=== PATIENT | male | born 1985 | race Caucasian/White ===

== ENCOUNTER 2018-01-24 17:38 | Emergency (ER) | payer OTHER ==
[2018-01-24 18:04] VITALS: BP 116/74; PULSE 91; RESP 18; TEMP 98.3
[2018-01-24] MEDS ORDERED: DIPH,PERTUS(ACELL)TETVAC-LF 0.5 ML VIAL IM ONE (18:33)
--- NOTE | 2018-01-24 19:02 | XR ---
PROCEDURE: XR finger RT 3V DATE AND TIME: 01/24/2018 6:47 PM CLINICAL INDICATION: [facility] Pain TECHNIQUE: Department protocol. 3V COMPARISON: None FINDINGS: At the tip of the third finger anteriorly is a 1 cm cutaneous/shallow subcutaneous soft tis mick defect. No radiopaque foreign. No soft tissue emphysema. There is no fracture or malalignment. IMPRESSION: Soft tissue defect.
[2018-01-24] MEDS ORDERED: CEPHALEXIN 500MG STARTER PACK 4 CAP BTL PO STA (19:23)
[2018-01-24] MEDS ORDERED: TOPICAL SKIN ADHESIVE 1 EACH AMP TOPICAL ONE (19:23)
--- NOTE | 2018-01-24 19:25 | ED ---
Skin/Abscess/FB HPI - General Chief complaint: Skin/Abscess/Foreign Body Stated complaint: nail gun in finger Time Seen by Provider: 01/24/18 19:03 Source: patient, RN notes reviewed, old records reviewed Mode of arrival: ambulatory Limitations: no limitations - History of Present Illness Initial comments: This patient is a 33 year old male with CC of puncture wound of R middle finger after a nail gun was fired. Patient reports that he has full ROM of finger. Patient reports it happened at work. Patient reports he is a building a deck. Patient reports that his TDAP is not up to date. - Related Data Previous Rx's Medication Instructions Recorded Cephalexin [Keflex] 500 mg PO Q8HR #21 cap 01/24/18 Allergies Allergy/AdvReac Type Severity Reaction Status Date / Time No Known Allergies Allergy Verified 01/24/18 18:23 Review of Systems ROS Statement: Those systems with pertinent positive or pertinent negative responses have been documented in the HPI. ROS Other: All systems not noted in ROS Statement are negative. Past Medical History Past Medical History: No Reported History History of Any Multi-Drug Resistant Organisms: None Reported Past Surgical History: No Surgical Hx Reported Past Psychological History: No Psychological Hx Reported Smoking Status: Current every day smoker Past Alcohol Use History: Rare Past Drug Use History: Marijuana General Exam - General Exam Comments Initial Comments: This is a 33 year old male, no distress. Limitations: no limitations General appearance: alert, in no apparent distress Head exam: Present: atraumatic, normocephalic, normal inspection Eye exam: Present: normal appearance, PERRL, EOMI. Absent: scleral icterus, conjunctival injection, periorbital swelling ENT exam: Present: normal exam, mucous membranes moist Neck exam: Present: normal inspection. Absent: tenderness, meningismus, lymphadenopathy Respiratory exam: Present: normal lung sounds bilaterally. Absent: respiratory distress, wheezes, rales, rhonchi, stridor Cardiovascular Exam: Present: regular rate, normal rhythm, normal heart sounds. Absent: systolic murmur, diastolic murmur, rubs, gallop, clicks GI/Abdominal exam: Present: soft, normal bowel sounds. Absent: distended, tenderness, guarding, rebound, rigid Extremities exam: Present: normal inspection, full ROM, normal capillary refill. Absent: tenderness, pedal edema, joint swelling, calf tenderness Right Elbow exam: Present: normal inspection, full ROM Forearm Wrist exam: Present: normal inspection, full ROM Hand Wrist exam: Present: full ROM, laceration (puncture wound of R middle finger over DIP). Absent: normal inspection Vascular: Present: normal capillary refill Neurological exam: Present: alert, oriented X3, CN II-XII intact Psychiatric exam: Present: normal affect, normal mood Skin exam: Present: warm, dry, intact, normal color. Absent: rash Course Vital Signs 01/24/18 18:02 Temperature 98.3 F Pulse Rate 91 Respiratory 18 Rate Blood Pressure 116/74 O2 Sat by Pulse 100 Oximetry Medical Decision Making - Medical Decision Making 33 year old male with puncture wound of R Middle finger from nail gun. Patient has superficial puncture wound. Patient xray shows no fractures. He has full ROM of finger. Patient given TDAP. Given Rx for keflex for infection prevention. Wound was throughly irrigated. Discussed follow up and monitoring for infection. - Radiology Data Radiology results: report reviewed At the tip of the 3rd finger anteriorly 1cm cutaneuos shalier subcutaneous defect. No foreign body. No emphysema. Disposition Clinical Impression: Puncture wound of finger of right hand Disposition: HOME SELF-CARE Condition: Good Instructions: Puncture Wound (ED) Additional Instructions: Patient advised to take antibiotic as prescribed. Keep the wound clean and dry. Return to the emergency department if any alarming signs or symptoms occur. Prescriptions: Cephalexin [Keflex] 500 mg PO Q8HR #21 cap Is patient prescribed a controlled substance at d/c from ED?: No Referrals: None,Stated [Primary Care Provider] - 1-2 days Kaela Ibarra MD [STAFF PHYSICIAN] - 1-2 days Frankie Chapman DO [Doctor of Osteopathic Medicine] - 1-2 days Time of Disposition: 19:24
== END 2018-01-24 19:54 | disposition home or self-care (01) ==
LOC: EC 17:38
DX: S61.232A Puncture wound without foreign body of right middle finger without damage to nail, initial encounter (principal); S61.212A Laceration without foreign body of right middle finger without damage to nail, initial encounter; F17.200 Nicotine dependence, unspecified, uncomplicated; Z23 Encounter for immunization; W29.4XXA Contact with nail gun, initial encounter; Y93.89 Activity, other specified; Y92.89 Other specified places as the place of occurrence of the external cause
CPT/HCPCS: 90471; 90715; 99283

== ENCOUNTER 2022-09-27 11:11 | Observation (INO) | payer OTHER ==
[2022-09-27] MEDS ORDERED: HYDROmorphone 0.5 MG/0.5 ML SYRINGE IVP STA ×2 (11:29→12:03)
[2022-09-27] MEDS ORDERED: ONDANSETRON 4 MG/2 ML VIAL IVP STA (11:29)
[2022-09-27] MEDS ORDERED: DIPH,PERTUS(ACELL)TETVAC-LF 0.5 ML VIAL IM ONE (11:30)
--- NOTE | 2022-09-27 12:05 | ED ---
Lower Extremity Injury HPI - General Chief Complaint: Extremity Injury, Lower Stated Complaint: Knee Injury Time Seen by Provider: 09/27/22 11:15 Source: patient, RN notes reviewed Mode of arrival: wheelchair Limitations: no limitations - History of Present Illness Initial Comments: 37-year-old male presents emergency Department with chief complaint of nail in left knee. Patient states that he was doing some decking with 3 inch nail states that he actually shot wanted to his left knee is unsure when his last tetanus was. He has NO KNOWN DRUG ALLERGIES. Patient has been in severe pain states he cannot bend his leg. - Related Data Home Medications Medication Instructions Recorded Confirmed No Known Home Medications 09/27/22 09/27/22 Allergies Allergy/AdvReac Type Severity Reaction Status Date / Time No Known Allergies Allergy Verified 09/27/22 13:08 Review of Systems ROS Statement: Those systems with pertinent positive or pertinent negative responses have been documented in the HPI. ROS Other: All systems not noted in ROS Statement are negative. Past Medical History Past Medical History: No Reported History History of Any Multi-Drug Resistant Organisms: None Reported Past Surgical History: No Surgical Hx Reported Past Psychological History: No Psychological Hx Reported Smoking Status: Current every day smoker Past Alcohol Use History: Rare Past Drug Use History: Marijuana General Exam Limitations: no limitations General appearance: alert, in no apparent distress Head exam: Present: atraumatic, normocephalic, normal inspection Respiratory exam: Present: normal lung sounds bilaterally. Absent: respiratory distress, wheezes, rales, rhonchi, stridor Cardiovascular Exam: Present: regular rate, normal rhythm, normal heart sounds. Absent: systolic murmur, diastolic murmur, rubs, gallop, clicks Extremities exam: Present: other (Left knee just superior to the patella there is noted nail protruding through the skin patient unable to bend knee, neurovascular intact no active bleeding) Course Vital Signs 09/27/22 11:12 Temperature 98.7 F Pulse Rate 85 Respiratory 20 Rate Blood Pressure 156/72 O2 Sat by Pulse 100 Oximetry Medical Decision Making - Medical Decision Making Was pt. sent in by a medical professional or institution (, PA, CONVEYOR MAN, urgent care, hospital, or skilled nursing...) When possible be specific @ -No Did you speak to anyone other than the patient for history (EMS, parent, family, police, friend...)? What history was obtained from this source @ -No Did you review nursing and triage notes (agree or disagree)? Why? @ -I reviewed and agree with nursing and triage notes Were old charts reviewed (outside hosp., previous admission, EMS record, old EKG, old radiological studies, urgent care reports/EKG's, skilled nursing records)? Report findings @ -No old charts were reviewed Differential Diagnosis (chest pain, altered mental status, abdominal pain women, abdominal pain men, vaginal bleeding, weakness, fever, dyspnea, syncope, h eadache, dizziness, GI bleed, back pain, seizure, CVA, palpatations, mental health, musculoskeletal)? @ -Foreign-body left knee, fracture, EKG interpreted by me (3pts min.). @ -None X-rays interpreted by me (1pt min.). @ -X-ray shows foreign-body to the femur into the joint space of the left knee CT interpreted by me (1pt min.). @ -None done U/S interpreted by me (1pt. min.). @ -None done What testing was considered but not performed or refused? (CT, X-rays, U/S, labs)? Why? @ -None What meds were considered but not given or refused? Why? @ -None Did you discuss the management of the patient with other professionals (professionals i.e. , PA, CONVEYOR MAN, lab, RT, psych nurse, social insurance adviser, pullman car repairer, teacher, labor relations officer, case advocate)? Give summary @ -Case discussed with Quinn Wood on-call for orthopedics associate recommends patient be admitted for lower for nail removal, washout Was smoking cessation discussed for >3mins.? @ -No Was critical care preformed (if so, how long)? @ -No Were there social determinants of health that impacted care today? How? (Homelessness, low income, unemployed, alcoholism, drug addiction, transportation, low edu. Level, literacy, decrease access to med. care, mcc, rehab)? @ -No Was there de-escalation of care discussed even if they declined (Discuss DNR or withdrawal of care, Hospice)? DNR status @ -No What co-morbidities impacted this encounter? (DM, HTN, Smoking, COPD, CAD, Cancer, CVA, ARF, Chemo, Hep., AIDS, mental health diagnosis, sleep apnea, morbid obesity)? @ -None Was patient admitted / discharged? Hospital course, mention meds given and route, prescriptions, significant lab abnormalities, going to OR and other pertinent info. @ -Admitted for observation for or removal of foreign body with washout patient was given Ancef, Adacel. Patient was given adequate pain control. Undiagnosed new problem with uncertain prognosis? @ -No Drug Therapy requiring intensive monitoring for toxicity (Heparin, Nitro, Insulin, Cardizem)? @ -No Were any procedures done? @ -No Diagnosis/symptom? @ -Foreign-body left knee Acute, or Chronic, or Acute on Chronic? @ -Acute Uncomplicated (without systemic symptoms) or Complicated (systemic symptoms)? @ -Uncomplicated Side effects of treatment? @ -No Exacerbation, Progression, or Severe Exacerbation? @ -No Poses a threat to life or bodily function? How? (Chest pain, [place], [place], pneumonia, PE, COPD, DKA, ARF, appy, cholecystitis, CVA, Diverticulitis, Homicidal, Suicidal, threat to staff... and all critical care pts) @ -No Disposition Clinical Impression: Foreign body of left knee Disposition: ADMITTED IP TO THIS HOSP Condition: Fair Referrals: None,Stated [Primary Care Provider] - 1-2 days Time of Disposition: 12:41
--- NOTE | 2022-09-27 12:06 | XR ---
EXAMINATION TYPE: XR knee limited LT DATE OF EXAM: 09/27/2022 CLINICAL HISTORY: Nail gun injury with pain TECHNIQUE: Frontal and lateral views of the right knee are obtained. COMPARISON: None. FINDINGS: There is a large metallic nail transecting the anterior aspect of the distal femoral metap hysis extending inferiorly through the distal tibial epiphysis on frontal view at the level of the th e intracondylar notch. There is some bending at osseous insertion but no metallic nail fragmentation. There is no acute fracture/dislocation evident in the left knee. Mild narrowing medial tibiofemoral and patellofemoral compartments. The overlying soft tissue appears unremarkable. IMPRESSION: As above.
[2022-09-27] MEDS ORDERED: NALOXONE 0.4 MG/ML 1 ML VIAL IV PRN (12:58)
[2022-09-27] MEDS ORDERED: ONDANSETRON 4 MG/2 ML VIAL IVP PRN (12:58)
[2022-09-27] MEDS ORDERED: LACTATED RINGERS 1,000 ML IV ONE (13:44)
[2022-09-27] MEDS ORDERED: HYDROmorphone 1 MG/ML 1 ML SYRINGE IVP ONE (13:53)
[2022-09-27] MEDS ORDERED: DEXAMETHASONE SOD PHOSPHATE 4 MG/ML 1 ML VIAL IV ONE (13:54)
[2022-09-27] MEDS ORDERED: SUCCINYLCHOLINE CHLORIDE 200 MG/10 ML VIAL IV ONE (14:11)
[2022-09-27] MEDS ORDERED: PROPOFOL 10 MG/ML 20 ML VIAL IV ONE (14:11)
[2022-09-27] MEDS ORDERED: MIDAZOLAM 2 MG/2 ML VIAL ONE (14:11)
[2022-09-27] MEDS ORDERED: fentaNYL (PF) 50 MCG/ML 2 ML AMP ONE (14:11)
[2022-09-27] MEDS ORDERED: LIDOCAINE 2% INJ 20 MG/ML (2 ML VIAL) ONE (14:11)
--- NOTE | 2022-09-27 14:21 | P.HPOR ---
History of Present Illness H&P Date: 09/27/22 Chief Complaint: Nail at left knee from a nail gun Patient is a pleasant 37-year-old male seen and examined at bedside. He was doing some work at home today trying to build a deck. He was using a nail gun and inadvertently shot himself in his left leg. The nail went into his distal left thigh above his knee had sudden acute pain and presented to the emergency room. The patient says he has not had problems his leg or his knee in the past. He denies any other injuries. Denies any other pain. The pain is located only in his left knee. He denies any headaches lost consciousness. Denies any chest pain shortness of breath denies any fevers chills. Denies any numbness tingling his lower extremity is. Denies any problems in his foot and ankle or toes. Review of Systems As stated above in HPI. Otherwise no other complaints. He denies any numbness tingling his ankle foot or toes or his lower leg. He is not having problems his leg or his knee in the past. He is normally a community ambulator without any assistance. He is currently not working. Past Medical History Past Medical History: No Reported History History of Any Multi-Drug Resistant Organisms: None Reported Past Surgical History: No Surgical Hx Reported Past Psychological History: No Psychological Hx Reported Smoking Status: Current every day smoker Past Alcohol Use History: Rare Past Drug Use History: Marijuana Medications and Allergies Home Medications Medication Instructions Recorded Confirmed Type No Known Home Medications 09/27/22 09/27/22 History Allergies Allergy/AdvReac Type Severity Reaction Status Date / Time No Known Allergies Allergy Verified 09/27/22 13:57 Physical Examination Osteopathic Statement: *. No significant issues noted on an osteopathic structural exam other than those noted in the History and Physical/Consult. Results - Diagnostic results Knee x-ray: report reviewed, image reviewed (X-rays his left knee show the nail entering his distal femur angulated distally and posteriorly and with the tip entering into the posterior aspect of the joint between the condyles. There is no obvious fracture.) Assessment and Plan Assessment: Traumatic arthrotomy with a retained nail at the distal femur entering the knee joint Status post injury with a nail gun Plan: Traumatic arthrotomy with a retained nail at the distal femur entering the knee joint Status post injury with a nail gun The patient has obvious nail retained at his distal femur. The head of the nails actually tenting into the skin dimpling at C can see that of the nail. His neurologic status is intact at his lower extremities. We need to remove the nail [employer] slay. With the tip of the nail entering into the knee joint he has a traumatic arthrotomy I think requires irrigation and debridement of his left knee joint. We can plan on doing this arthroscopically. I discussed the nature of the injury with patient and the possibilities of other injury and fractured his distal femur and possibly's of infection was all spine to him. He understands these issues and he elects to proceed with surgical intervention for removal of foreign body at his left femur and into his left knee joint with irrigation and debridement left knee. I discussed the risk of occasions alternatives and he understands and agrees to proceed. He understands that he may need further treatment in the future but today we need to remove the foreign object evaluate the knee and start him with irrigation and debridement and IV antibiotics. He'll likely need IV and a box overnight tonight and home with oral medications. We'll plan surgery as soon as possible. He has been nothing by mouth today.
[2022-09-27] MEDS ORDERED: ceFAZolin 1,000 MG VIAL IVPB ONE (14:39)
[2022-09-27] MEDS ORDERED: ceFAZolin 1,000 MG in SODIUM CHLORIDE 0.9% 1,000 ML IRRIGATION ONE (14:44)
[2022-09-27] MEDS ORDERED: HYDROmorphone 0.5 MG/0.5 ML SYRINGE IVP PRN (15:07)
[2022-09-27] MEDS ORDERED: BENZOCAINE/MENTHOL LOZENG 1 EACH LOZENGE MUCOUS MEM PRN (15:07)
--- NOTE | 2022-09-27 15:20 | P.OP ---
Date of Procedure: 09/27/22 Preoperative Diagnosis: Traumatic arthrotomy left knee with retained foreign body, nail from a nail gun Retained traumatic nail from a nail gun in distal femur into the left knee joint Left knee pain due to injury Postoperative Diagnosis: Same Anesthesia: GETA Pathology: other Condition: stable Disposition: PACU Description of Procedure: Preoperative diagnosis: Traumatic arthrotomy left knee with retained foreign body, nail from a nail gun Retained traumatic nail from a nail gun in distal femur into the left knee joint Left knee pain due to injury Postoperative diagnosis: Same Procedure: Removal of foreign body, nail from left distal femur and knee joint deep Irrigation and debridement of left knee wound approximately 1 cm Arthroscopic irrigation and debridement left knee traumatic arthrotomy Surgeon: Dr. Cornelius Claytont.: Jacob Heck who is present that the entire the case persistence during positioning dissection exposure placement of hardware and closure Anesthesia: Gen. per Dr. Dr. Mcclure Estimated blood loss: Approximately 10 mL Components implanted: None, we removed one nail in its entirety from the distal femur and left knee joint Disposition: To recovery room in good stable condition Operative indications The patient sustained a injury this morning with a nail gun when the nail gun discharged and shot a nail into his distal thigh anteriorly at his distal femur and into his knee joint. He presented to the emergency room. He was evaluated and found have an retained foreign body at the distal femur through the femur and to the knee joint. The patient denied any other injuries or traumas. Denies any problems with other issues. Denies any numbness tingling or weakness in his lower extremity. We are involved in regards to the nail and the traumatic arthrotomy with retained foreign body. We discussed the range of treatment options from conservative to surgical. I felt that we needed to remove the nail as soon as possible performed irrigation debridement and that area and then performed evaluation of the knee joint with arthroscopy and a arthroscopic irrigation and debridement as well. I discussed this with the patient and discussed this at length in terms of the risks, occasions alternatives and benefits. Discussed nature of his injury and the possible issue with need for further surgery possibility of infection possible issues of fracture and problems with his knee was all explained to him due to the injury. We felt that surgery given the best chance for the most positive outcome. They elected proceed with surgical intervention. We answered their questions to the best of our ability healing which they can understand. They signed an informed consent. Operative summary After obtaining informed consent evaluation by anesthesia, preoperative evaluation and clearance for medical service, the patient was identified and prepped [place] area and the surgical site was marked. There brought to the operating room where the given appropriate anesthesia by the anesthesia department in standard fashion without any complications. Once the anesthesia was established we were able to position the patient. The patient was sedated and intubated with his head and neck in good alignment and position with severe was secured. He was then transferred supine on the operating room table being careful padding of bony problems pressure points. Rhythm able to isolate his left leg. His leg was shaved, had a nonsterile tourniquet placed proximally which was not inflated during the procedure. And his left leg was prepped and draped in normal standard fashion with his knee freely. Appropriate keystone protocol appropriate timeout was completed where proceed with surgery. I was able to isolate the head of the nail around the soft tissue. We're able to attach a vise-food preparation supervisor at the head of the nail and gently malleted the nail out of the bone and soft tissue appropriately. He was examined and found to be in total. The site was somewhat denuded and I made a small incision approximately 1/2 cm in length over the area debrided some of the soft tissue and a copious irrigation and suctioned dry at the defect left by the nail. This was found to be clean after the irrigation and debridement. With this completed and then turned my attention to the knee joint itself. We prepared for a knee arthroscopy and I made a small incision anteromedially. Please trocar into the knee joint appropriately. I was able to then place the trocar and connected the fluid through the trocar and visualized a scope. There is no evidence of any major lateral meniscal tear. The cartilage appeared to be intact. We were able to evaluate at the penetration site and appeared to be clear without any loose fragments or debris. The ACL appeared to be intact without evidence of tear. No active bleeding. We copiously irrigated through the knee with approximately 3 L of antibiotic irrigation. We had a clean joint and an we were able to prepare for closure. The arthroscopy and portal was removed. The wound is clean and dried and the skin layers were closed with nylon. The wound was dressed with Adaptic 4 x 4's 80s Ying roll and a bulky Damian wrap. The drapes were broken down patient was gently woken up by anesthesia asked. Transferred back to the stretcher but recovery in good stable condition. He will be able to be admitted overnight in the hospital for observation and IV antibiotics. If his knee is doing well we'll plan for him to go home with a oral antibiotics and monitor him closely an outpatient basis. He may weight-bear as tolerated. he will be readmitted for pain control and DVT prophylaxis medical management and monitoring and mobilization we will continue follow patient closely throughout their postoperative course.
[2022-09-27] MEDS: HYDROcodone/APAP 5-325MG 1 EACH TAB PO PRN ×2 (16:47→22:52)
[2022-09-27] MEDS: SODIUM CHLORIDE 0.9% 1,000 ML IV SCH (17:35)
[2022-09-27] MEDS: ceFAZolin 3 GM in SODIUM CHLORIDE 0.9% 100 ML IVPB SCH (21:10)
[2022-09-27] MEDS: HYDROmorphone 0.5 MG/0.5 ML SYRINGE IVP PRN (21:11)
[2022-09-28] MEDS: HYDROmorphone 0.5 MG/0.5 ML SYRINGE IVP PRN ×2 (03:24→08:27)
[2022-09-28] MEDS: ceFAZolin 3 GM in SODIUM CHLORIDE 0.9% 100 ML IVPB SCH (03:24)
[2022-09-28] MEDS: SODIUM CHLORIDE 0.9% 1,000 ML IV SCH (04:13)
[2022-09-28] MEDS: HYDROcodone/APAP 5-325MG 1 EACH TAB PO PRN (05:35)
[2022-09-28 08:18] VITALS: BP 122/72; PULSE 99; RESP 17; TEMP 98.2
--- NOTE | 2022-09-28 10:12 | P.DS ---
Providers Date of admission: 09/27/22 13:45 Attending physician: Aníbal Shields Primary care physician: Stated None Hospital Course: The patient presented on the day of admission as per their operative note. He had a traumatic arthrotomy from a nail gun injury to his left distal femur into his left knee joint. He underwent his surgical removal of the foreign object and arthroscopic I&D of his left knee yesterday as per his operative note. He feels he is doing well. His pain is much improved. He denies any fevers chills. Denies any numbness tingling weakness in his lower extremity. Physical Exam The incision site is clean dry and intact. There is no erythema no drainage. There is no purulence no evidence of infection. There is some diffuse swelling without any erythema. There is no active drainage. Abdomen soft and nontender. Chest has good excursion with deep inspiration and expiration. The patient has active and passive range of motion intact at the upper and lower extremities. There is no acute change in neurologic status. He has sustained motion at his ankle foot and toes. Hospital Course Postoperative day #1 status post removal of foreign object from the distal femur and left knee joint due to traumatic arthrotomy from a nail gun. The patient has been making good progress postoperatively. They have completed the prophylactic antibiotics without any signs or symptoms of infection. The patient has been able to advance their diet, and is tolerating diet adequately. The pain was initially controlled with IV medications and is now controlled appropriately with oral medications. The patient has been able to increase their mobilization. The patient has progressed appropriately. I think they are in good stable condition for discharge today. I think it would be helpful for the patient to continue with prophylactic oral antibiotics at home and we will write him prescription for this. He may have some pain at the area and he could use a couple days of pain medication if necessary. They will be sent home with appropriate prescriptions. I answered their questions to the best of my ability in a language that they can understand and they are agreeable with the plan. They will follow up as directed in approximately 10 days or sooner if he is having problems. Patient Condition at Discharge: Fair Plan - Discharge Summary Discharge Rx Participant: Yes New Discharge Prescriptions: New cephALEXin [Keflex] 750 mg PO Q12HR 5 Days #10 cap traMADol HCl [Ultram] 50 mg PO Q6HR PRN 3 Days #12 tab PRN Reason: Severe Pain (Scale 7 To 10) Discharge Medication List cephALEXin [Keflex] 750 mg PO Q12HR 5 Days #10 cap 09/28/22 [Rx] traMADol HCl [Ultram] 50 mg PO Q6HR PRN 3 Days #12 tab 09/28/22 [Rx] Follow up Appointment(s)/Referral(s): None,Stated [Primary Care Provider] - 1-2 days Aníbal Shields, [Doctor of Osteopathic Medicine] - 10 Days Activity/Diet/Wound Care/Special Instructions: May weight-bear as tolerated for light ambulation. No heavy or rigorous activity. No repetitive bending stooping or lifting. No sports. No running. Ice to left knee approximately 20 minutes 3 times a day. Elevate left lower extremity Discharge Disposition: HOME SELF-CARE
== END 2022-09-28 11:40 | disposition home or self-care (01) ==
LOC: EC 11:11 → 6NMEDSUR 13:45
PROVIDERS: ADMIT Orthopaedic Surgery Orthopaedic Surgery of the Spine; ATTEND Orthopaedic Surgery Orthopaedic Surgery of the Spine
DX: S81.042A Puncture wound with foreign body, left knee, initial encounter (principal); W45.0XXA Nail entering through skin, initial encounter; W29.4XXA Contact with nail gun, initial encounter; Z23 Encounter for immunization; F17.200 Nicotine dependence, unspecified, uncomplicated
CPT/HCPCS: 96376; 90471; 96365; 96375; 99285; 73560; 90715; 29870; 20103; G0378 ×2; J2250; J0330; J1100; J0690 ×3; J2405; J3010; J1170 ×3; J2704; J2001